=== PATIENT | male | born 1960 ===

== ENCOUNTER 2017-07-24 13:00 | Emergency (ER) | payer SELFPAY ==
[~2017-07-24] VITALS: Ht 185.4 cm; Wt 113.4 kg
[2017-07-24 13:41] VITALS: BP 133/78
--- NOTE | 2017-07-24 14:24 | ED GENERAL ADULT ---
History of Present Illness General Chief Complaint: Wheezing/Asthma Stated Complaint: INCREASE IN ASTHMA SYMPTOMS X 3 DAYS,CHEST TIGHT Source: patient Exam Limitations: no limitations Vital Signs & Intake/Output Vital Signs & Intake/Output Vital Signs Date Time Temp Pulse Resp B/P B/P Pulse O2 O2 Flow FiO2 Mean Ox Delivery Rate 07/24 1400 98 Room Air 07/24 1341 97.5 67 16 133/78 99 Room Air Allergies Coded Allergies: tetanus and diphtheria toxoids (Intermediate, ABDOMINAL CRAMPING 07/24/17) Triage Note: PT TO ED FOR ASTHMA EXACERBATION X 24 HOURS. Triage Nurses Notes Reviewed? yes Onset: Evening Duration: day(s): Timing: continuous HPI: 57yoM w/ hx of asthma (dx 7yrs ago) here w/ an exacerbation Patient reports chest tightness and inability to since yesterday. He has tried his albuterol inhaler several times without relief. His usual exacerbating factor is change in the weather. He is exposed to a dog which caused his first exacerbation this year, but reports no allergies. He has never been hospitalized for an exacerbation. He smokes marijuana daily and about 1cig q3-4wks. 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 He does not have a PCP or an asthma plan. (Kb Kenney) Reconcile Medications Prednisone 10 MG TABLET 1 TAB PO DAILY ASTHMA TAKE 3 TABS FOR 3 DAYS THEN TAKE 2 TABS FOR 3 DAYS THEN TAKE 1 TAB FOR 3 DAYS (Eloise COULTER,Huan Sullivan) Past History Travel History Traveled to [place] past 21 day No Medical History Any Pertinent Medical History? see below for history Respiratory: asthma Surgical History Surgical History: none Psychosocial History What is your primary language Danish Tobacco Use: Never used ETOH Use: occasional use Illicit Drug Use: marijuana Family History Hx Contributory? Yes (Kb Kenney) Review of Systems Review of Systems Constitutional: Reports: see HPI. Denies: chills, diaphoresis, fever, malaise, weakness. (Kb Kenney) Review of Systems Constitutional: Reports: no symptoms. EENTM: Reports: no symptoms. Respiratory: Reports: see HPI, short of breath, wheezing. Cardiovascular: Reports: no symptoms. GI: Reports: no symptoms. Genitourinary: Reports: no symptoms. Musculoskeletal: Reports: no symptoms. Skin: Reports: no symptoms. Neurological/Psychological: Reports: no symptoms. Hematologic/Endocrine: Reports: no symptoms. Immunologic/Allergic: Reports: no symptoms. All Other Systems: Reviewed and Negative (Eloise COULTER,Huan Sullivan) Physical Exam Physical Exam General Appearance: well developed/nourished, alert, awake, comfortable Respiratory: no respiratory distress, decreased breath sounds Cardiovascular: regular rate/rhythm Core Measures ACS in differential dx? No CVA/TIA Diagnosis: No Sepsis Present: No Sepsis Focused Exam Completed? No (Celia STUDENTKb) Physical Exam Head: atraumatic, normal appearance Eyes: Bilateral: PERRL, EOMI. Neck: normal inspection, supple, full range of motion Gastrointestinal: normal bowel sounds, soft, non-tender Extremities: normal inspection, normal capillary refill, normal range of motion, no edema Neurologic/Psych: no motor/sensory deficits, awake, alert, oriented x 3, normal gait, normal mood/affect Skin: intact, normal color, warm/dry (Eloise COULTER,Huan Sullivan) Progress Differential Diagnoses I considered the following diagnoses in my evaluation of the patient: Including but not limited to [Asthma, SOB] Plan of Care: Orders Procedure Date/time Status AEROSOL (GEN) 07/24 1425 Complete EKG 07/24 1302 Active Patient tight on pulmonary exam. He will be given a duoneb treatment w/ steroids and reevaluated. Initial ED EKG: normal axis, normal intervals, normal p-waves, normal QRS complex, normal sinus rhythm Comments: 2:37PM Patient given duonebs and reevaluated. He reports interval improvement in his breathing. Exam significant for better air movement and wheezing. He will be monitored and albuterol treatment will be repeated. Patient to be discharged w/ an ICS and a refill of his ventolin. He is to follow up with his PCP for an asthma action plan. (Celia STUDENTKb) Differential Diagnoses I considered the following diagnoses in my evaluation of the patient: Comments: Better air entry after DuoNeb. Still has slight expiratory wheeze. We will give her another albuterol. (Huan Navas MD) Departure Departure Condition: Stable Referrals: Patient Has No Primary Care Dr (PCP/Family) Departure Forms: Customer Survey General Discharge Information (Kb Kenney) Departure Disposition: HOME OR SELF CARE Clinical Impression Primary Impression: Asthma exacerbation Additional Instructions: RETURN IF SYMPTOMS WORSEN OR FOR ANY CONCERNS Prescriptions: Current Visit Scripts Prednisone 1 TAB PO DAILY #18 TAB TAKE 3 TABS FOR 3 DAYS THEN TAKE 2 TABS FOR 3 DAYS THEN TAKE 1 TAB FOR 3 DAYS Resident Co-Sign Statement Statement: ED Attending supervision documentation- [X] I saw and evaluated the patient. I have also reviewed all the pertinent lab results and diagnostic results. I agree with the findings and the plan of care as documented in the Resident's documentation. [X] I have reviewed the ED Record and agree with the Resident's documentation. [] Additions or exceptions (if any) to the Resident's note and plan are summarized below: [] (Eloise COULTER,Huan Sullivan) Critical Care Note Critical Care Note Critical Care Time: 75-104 min (Kb Kenney) ED Attending Observation Initial Observation Note: I have seen and personally examined BAIRON HIGUERA on 07/24/17 at 1421. I agree with the current emergency department documentation. The disposition (admission or discharge) is uncertain at this time, he needs a period of observation for the following reason(s): The ED Nurse caring for this patient has been personally informed as to what the patient is being observed for. (Kb Kenney) observation for the following reason(s): The ED Nurse caring for this patient has been personally informed as to what the patient is being observed for. (Kb Kenney)
[2017-07-24] MEDS ORDERED: PREDNISONE10 M2 PO (14:51)
== END 2017-07-24 15:28 ==
LOC: ERH 13:00
DX: J45.901 Unspecified asthma with (acute) exacerbation (principal); R07.89 Other chest pain
CPT/HCPCS: 93005; 93010

== ENCOUNTER 2018-01-29 15:18 | Emergency (ER) | payer SELFPAY ==
[~2018-01-29 15:18] MED LIST: ALBUTEROL2.5 MG/3 M INH/SOL; MEDROL4 M2 PO; PREDNISONE10 M2 PO; nebulizer machine
--- NOTE | 2018-01-29 15:48 | RADIOLOGY REPORT ---
EXAMINATION: XR CHEST CLINICAL INFORMATION: Shortness of breath. COMPARISON: None TECHNIQUE: 2 views of the chest were obtained. FINDINGS: No significant abnormality is noted involving the heart, lungs, mediastinum, bony thorax or soft tissues. IMPRESSION: Unremarkable examination.
--- NOTE | 2018-01-29 16:09 | ED DYSPNEA/ASTHMA COMPLAINT ---
History of Present Illness General Chief Complaint: Dyspnea (COPD, CHF, Other) Stated Complaint: ASTHMA ATTACK Source: patient Exam Limitations: no limitations Vital Signs & Intake/Output Vital Signs & Intake/Output Vital Signs Date Time Temp Pulse Resp B/P B/P Pulse O2 O2 Flow FiO2 Mean Ox Delivery Rate 01/29 1910 98.8 54 18 132/78 97 01/29 1909 Room Air 01/29 1550 97 01/29 1520 98.4 74 17 149/85 97 Room Air Allergies Coded Allergies: tetanus and diphtheria toxoids (Intermediate, ABDOMINAL CRAMPING 07/24/17) Reconcile Medications Albuterol Sulfate 2.5 MG/3 ML (0.083 %) VIAL.NEB 1 Vial INH/MELODY Q4P PRN wheezing Methylprednisolone. (Medrol) 4 MG TAB.DS.PK 1 DP PO AD asthma 6 on day 1 then reduce by one tablet daily until gone [nebulizer machine] 0 asthma DIAGNOSIS: ASTHMA SIG: USE DIRECTED Prednisone 50 MG TABLET 1 TAB PO DAILY asthma Prednisone 10 MG TABLET 1 TAB PO DAILY ASTHMA TAKE 3 TABS FOR 3 DAYS THEN TAKE 2 TABS FOR 3 DAYS THEN TAKE 1 TAB FOR 3 DAYS Triage Note: PT TO ED WITH C/O SOB, NON PROD COUGH FOR THE PAST 3-4 DAYS. HX OF ASTHMA, TAKING INHALER W/O RELIEF. MILD HEADACHE. DENIES CP OR DIZZINESS. 02 SAT 97% RA. SPEAKING IN FULL SENTENCES W/O DIFFICULTY. Triage Nurses Notes Reviewed? yes Onset: Abrupt Duration: day(s): (3-4), constant Timing: recent history HPI: 50-year-old male comes into the emergency room with complaints of shortness of breath and his asthma. Patient reports she's been feeling his asthma acting up for the last 3-4 days. Associated wheezing. Denies any fever chills. Coughing with no mucus production. Denies any chest pain. Denies any syncope. Denies any lightheaded dizziness. Shortness of breath is worse with exertion and better with rest. (Joaquin Rendon) Past History Travel History Traveled to [place] past 21 day No Medical History Any Pertinent Medical History? see below for history Neurological: NONE EENT: NONE Cardiovascular: NONE Respiratory: asthma Gastrointestinal: NONE Hepatic: NONE Renal: NONE Musculoskeletal: NONE Psychiatric: NONE Endocrine: NONE Blood Disorders: NONE Cancer(s): NONE Surgical History Surgical History: none Psychosocial History What is your primary language Rwandan Tobacco Use: Never used Family History Hx Contributory? No (Joaquin Rendon) Review of Systems Review of Systems Constitutional: Reports: no symptoms. EENTM: Reports: no symptoms. Respiratory: Reports: see HPI. Cardiovascular: Reports: no symptoms. GI: Reports: no symptoms. Genitourinary: Reports: no symptoms. Musculoskeletal: Reports: no symptoms. Skin: Reports: no symptoms. Neurological/Psychological: Reports: no symptoms. Hematologic/Endocrine: Reports: no symptoms. Immunologic/Allergic: Reports: no symptoms. All Other Systems: Reviewed and Negative (Joaquin Rendon) Physical Exam Physical Exam General Appearance: well developed/nourished, no apparent distress, alert, awake Head: atraumatic, normal appearance Eyes: Bilateral: normal appearance. Ears, Nose, Throat: normal ENT inspection, hearing grossly normal Neck: normal inspection Respiratory: no respiratory distress, decreased breath sounds, wheezing Cardiovascular: regular rate/rhythm Extremities: normal inspection Neurologic/Psych: awake, alert, oriented x 3 Skin: intact, normal color Core Measures ACS in differential dx? Yes (it was considered ) CVA/TIA Diagnosis No Sepsis Present: No Sepsis Focused Exam Completed? No (Joaquin Rendon) Progress Differential Diagnosis: asthma, AMI, bronchitis, CHF, COPD, pericarditis, pulmonary embolism, pneumonia, pneumothorax Plan of Care: Orders Procedure Date/time Status TROPONIN LEVEL 01/29 1920 Complete EKG 01/29 1920 Active TROPONIN LEVEL 01/29 1608 Complete D-DIMER 01/29 1608 Complete COMPREHENSIVE METABOLIC PANEL 01/29 1608 Complete CBC WITHOUT DIFFERENTIAL 01/29 1608 Complete EKG 01/29 1525 Active Laboratory Tests 01/29/18 1910: Troponin I < 0.01 01/29/18 1618: Anion Gap 10, Estimated GFR > 60, BUN/Creatinine Ratio 5.0 L, Glucose 96, Calcium 9.1, Total Bilirubin 0.5, AST 27, ALT 31, Alkaline Phosphatase 70, Troponin I < 0.01, Total Protein 7.2, Albumin 4.0, Globulin 3.2, Albumin/ Globulin Ratio 1.3, D-Dimer High Sensitivty 484 H, CBC w Diff NO MAN DIFF REQ, RBC 4.74, MCV 86.8, MCH 29.0, MCHC 33.4, RDW 13.6, MPV 7.7, Gran % 57.8, Lymphocytes % 25.9, Monocytes % 7.9, Eosinophils % 8.0 H, Basophils % 0.4, Absolute Granulocytes 5.3, Absolute Lymphocytes 2.4, Absolute Monocytes 0.7 H, Absolute Eosinophils 0.7, Absolute Basophils 0 Diagnostic Imaging: Viewed by Me: Radiology Read. Discussed w/RAD: Radiology Read. Radiology Impression: PATIENT: BAIRON HIGUERA PRESENT AGE: 58 PATIENT ACCOUNT NO: [id number] : 60 LOCATION: [facility] ORDERING PHYSICIAN: Joaquin RAMOS SERVICE DATE: 01/29/18 EXAM TYPE: CAT - CTA CHEST-PULMONARY EMBOLISM EXAMINATION: CT ANGIOGRAM OF THE CHEST WITH AND WITHOUT CONTRAST (CT PULMONARY ANGIOGRAM FOR PE) CLINICAL INFORMATION: Reason for Study:
Presumptive Dx: SOB
Signs Symptoms: EKLEAVRTED DIMER
COMPARISON: None TECHNIQUE: Prior to contrast administration, noncontrast localization images were obtained. Subsequently, multidetector volumetric imaging was performed from the thoracic inlet to below the diaphragms following the administration of 95 mL Optiray 320 intravenous contrast. No contrast reaction reported. Sagittal, coronal, and MIP oblique sagittal reformatted images were obtained on the CT workstation, uploaded to PACS, and reviewed. Total exam dose-length product 567 mGy-cm. FINDINGS: QUALITY OF STUDY/CONTRAST BOLUS: Satisfactory PULMONARY ARTERIES: No central or segmental pulmonary emboli. THORACIC AORTA: No aneurysm or dissection. Some minimal calcified atherosclerotic plaquing in the descending aorta. LUNG: There is a tiny subpleural probable calcified granuloma in the right upper lobe but it is indeterminate because of its tiny size. No suspicious lung masses are seen. No infiltrates are present. PLEURA: No pleural effusion or pneumothorax. MEDIASTINUM: Normal heart size. No pericardial effusion. No hilar or mediastinal lymphadenopathy. No evidence of septal bowing or right heart strain. CHEST WALL/ AXILLA: No axillary or internal mammary lymphadenopathy. OSSEOUS STRUCTURES: No acute or suspicious osseous abnormality. UPPER ABDOMEN: Unremarkable. No reflux of contrast into the hepatic veins to suggest elevated right heart pressures. IMPRESSION: No significant pathology is identified. VTE: negative DICTATED BY: Flo Smalls MD DATE/TIME DICTATED:01/29/181918 FORK TRUCK OPERATOR:ROGERS DATE/TIME TRANSCRIBED:01/29/181918 CONFIDENTIAL, DO NOT COPY WITHOUT APPROPRIATE AUTHORIZATION. <Electronically signed in Other Vendor System> SIGNED BY: Flo Smalls MD 01/29/181928, PATIENT: BAIRON HIGUERA PRESENT AGE: 58 PATIENT ACCOUNT NO: [id number] : 60 LOCATION: [facility] ORDERING PHYSICIAN: Joaquin RAMOS SERVICE DATE: 01/29/18 EXAM TYPE: RAD - XRY-CHEST XRAY, TWO VIEWS EXAMINATION: XR CHEST CLINICAL INFORMATION : Shortness of breath. COMPARISON: None TECHNIQUE: 2 views of the chest were obtained. FINDINGS: No significant abnormality is noted involving the heart, lungs, mediastinum, bony thorax or soft tissues. IMPRESSION: Unremarkable examination. DICTATED BY: Ken Hobbs MD DATE/TIME DICTATED:01/29/181543 FORK TRUCK OPERATOR:ROGERS DATE/TIME TRANSCRIBED:01/29/181543 CONFIDENTIAL, DO NOT COPY WITHOUT APPROPRIATE AUTHORIZATION. <Electronically signed in Other Vendor System> SIGNED BY: Ken Hobbs MD 01/29/181547 Initial ED EKG: normal sinus rhythm, rate (70) Repeat EKG: unchanged (Joaquin Rendon) Departure Departure Disposition: HOME OR SELF CARE Condition: Stable Clinical Impression Primary Impression: Asthma exacerbation Referrals: Patient Has No Primary Care Dr (PCP/Family) Additional Instructions: Take prednisone as prescribed. Continue to use your albuterol pump at home. Follow-up with your PCP. Return if any concerns worsening symptoms. Please go over all results of today's visit with your primary care doctor. Contact your primary care doctor to let them know you were here in the emergency room. There may be nonspecific findings which may not be related to your visit today here in the emergency room but may require further evaluation and chronic monitoring by your primary care doctor. If you had a laceration today the chance of foreign body always remains. You should follow-up with your primary care doctor for recheck in 3-5 days for a wound check. If you had an x-ray done there is a chance that a fracture could have been missed on initial read and you should follow-up with your primary care doctor for repeat x-rays if symptoms persist. If your blood pressure was elevated here in the emergency room please have rechecked by [facility] primary care doctor within the next 48. If you were prescribed a narcotic here in the emergency room or any type of controlled substances you're not allowed to drive while taking this medication or operate any type of heavy machinery. Narcotics can make you feel lightheaded dizziness nausea and can cause constipation. You may need to picked edge sewing machine operator a stool softener. Thank you for choosing [facility] emergency room. Please return to the emergency room immediately if you have any other concerns worsening of symptoms. Departure Forms: Customer Survey General Discharge Information Prescriptions: Current Visit Scripts Prednisone 1 TAB PO DAILY #4 TAB Comments 01/29/2018 8:10:38 PM Heart score is 2. Patient is low risk. 2 unchanged EKGs and 2 normal troponins. Symptoms are consistent with asthma as opposed to acute coronary syndrome. He has no complaints of chest pain. Due to the fact the patient was having shortness of breath with exertion and better with rest the cardiac workup was done in case of atypical angina pain. Symptoms are more consistent with asthma. Patient felt significantly better after nebulizer treatment and prednisone. Patient is to follow-up with his PCP. Take prednisone as prescribed. Return if any other concerns worsening symptoms. He clinically looks well on discharge and no apparent distress. (Joaquin Rendon) PA/SECURITY SOLUTIONS ENGINEER Co-Sign Statement Statement: ED Attending supervision documentation- [] I saw and evaluated the patient. I have also reviewed all the pertinent lab results and diagnostic results. I agree with the findings and the plan of care as documented in the PA's/SECURITY SOLUTIONS ENGINEER's documentation. [x] I have reviewed the ED Record and agree with the PA's/SECURITY SOLUTIONS ENGINEER's documentation. [] Additions or exceptions (if any) to the PAs/SECURITY SOLUTIONS ENGINEER's note and plan are summarized below: [] (Irene COULTER,Julian Weiner) Critical Care Note Critical Care Note Critical Care Time: 30-74 min (35) (Joaquin Rendon)
[2018-01-29 17:23] LABS: ABSOLUTE BASOPHIL COUNT 0 /CUMM (0.0-0.2); ABSOLUTE EOSINOPHIL COUNT 0.7 /CUMM (0.0-0.7); ABSOLUTE GRANULOCYTE CT 5.3 /CUMM (1.4-6.5); ABSOLUTE LYMPH COUNT 2.4 /CUMM (1.2-3.4); ABSOLUTE MONOCYTE COUNT 0.7 /CUMM (0.10-0.60); BASOPHIL % 0.4 % (0.0-2.0); GRANULOCYTE % 57.8 % (42.2-75.2); HEMATOCRIT 41.2 % (42-52); MEAN CORPUSCULAR HGB CONC 33.4 G/DL (33.0-37.0); MEAN CORPUSCULAR VOLUME 86.8 FL (80.0-94.0); MEAN PLATELET VOLUME 7.7 FL (7.4-10.4); PLATELET COUNT 361 /CUMM (130-400); RBC DISTRIBUTION WIDTH 13.6 % (11.5-14.5); RED BLOOD CELL CT 4.74 /CUMM (4.70-6.10); WHITE BLOOD CELL COUNT 9.2 /CUMM (4.8-10.8)
[2018-01-29 19:10] VITALS: BP 132/78
--- NOTE | 2018-01-29 19:29 | CT SCAN REPORT ---
EXAMINATION: CT ANGIOGRAM OF THE CHEST WITH AND WITHOUT CONTRAST (CT PULMONARY ANGIOGRAM FOR PE) CLINICAL INFORMATION: Reason for Study:
Presumptive Dx: SOB
Signs Symptoms: EKLEAVRTED DIMER
COMPARISON: None TECHNIQUE: Prior to contrast administration, noncontrast localization images were obtained. Subsequently, multidetector volumetric imaging was performed from the thoracic inlet to below the diaphragms following the administration of 95 mL Optiray 320 intravenous contrast. No contrast reaction reported. Sagittal, coronal, and MIP oblique sagittal reformatted images were obtained on the CT workstation, uploaded to PACS, and reviewed. Total exam dose-length product 567 mGy-cm. FINDINGS: QUALITY OF STUDY/CONTRAST BOLUS: Satisfactory PULMONARY ARTERIES: No central or segmental pulmonary emboli. THORACIC AORTA: No aneurysm or dissection. Some minimal calcified atherosclerotic plaquing in the descending aorta. LUNG: There is a tiny subpleural probable calcified granuloma in the right upper lobe but it is indeterminate because of its tiny size. No suspicious lung masses are seen. No infiltrates are present. PLEURA: No pleural effusion or pneumothorax. MEDIASTINUM: Normal heart size. No pericardial effusion. No hilar or mediastinal lymphadenopathy. No evidence of septal bowing or right heart strain. CHEST WALL/AXILLA: No axillary or internal mammary lymphadenopathy. OSSEOUS STRUCTURES: No acute or suspicious osseous abnormality. UPPER ABDOMEN: Unremarkable. No reflux of contrast into the hepatic veins to suggest elevated right heart pressures. IMPRESSION: No significant pathology is identified. VTE: negative
[2018-01-29] MEDS ORDERED: PREDNISONE50 M1 PO (20:02)
== END 2018-01-29 20:06 ==
LOC: ERH 15:18
PROVIDERS: Physician Assistant Medical
DX: J45.901 Unspecified asthma with (acute) exacerbation (principal)
CPT/HCPCS: 1263; 1395; 71046; 93005; 93010